=== PATIENT | male | born 1990 | race Asian ===

== ENCOUNTER 2017-04-19 08:47 | Day surgery (SDC) | payer OTHER ==
[~2017-04-19] VITALS: Ht 170.2 cm; Wt 71.2 kg
[2017-04-19] VITALS (7 sets, daily range): BP systolic 110–133; BP diastolic 56–75
--- NOTE | 2017-04-19 09:20 | Anethesia Preoperative Eval ---
Anesthesia Pre-op PMH/ROS General Date of Evaluation: Apr 19, 2017 Time of Evaluation: 09:20 Anesthesiologist: joseluis ASA Score: ASA 2 Mallampati Score Class I : Soft palate, uvula, fauces, pillars visible Class II: Soft palate, uvula, fauces visible Class III: Soft palate, base of uvula visible Class IV: Only hard plate visible Mallampati Classification: Class II Surgeon: aelx Diagnosis: abdominal pain, gerd Surgical Procedure: egd Anesthesia History: none Social History: smoking - former smoker Family History: no anesthesia problems Allergies: Coded Allergies: No Known Allergies (Unverified , 04/19/17) Medications: see eMAR Past Medical History Pulmonary: Reports: other - tuberculosis Gastrointestinal/Genitourinary: Reports: GERD Anesthesia Pre-op Phys. Exam Physician Exam Last Vital Signs Date Time Temp Pulse Resp B/P (MAP) Pulse Ox O2 Delivery O2 Flow Rate FiO2 04/19/17 10:00 61 16 112/69 99 Nasal Cannula 3.0 04/19/17 09:52 97.6 Constitutional: NAD Neurologic: CN 2-12 intact Cardiovascular: RRR Respiratory: CTA Gastrointestinal: S/NT/ND Airway Exam Mallampati Score: Class II MO: full Neck: supple TMD: 2fb ROM: full Teeth: intact Anesthesia Pre-op A/P Risk Assessment & Plan Assessment: asa2 Plan: mac Status Change Before Surgery: No Pre-Antibiotics Drug: ALEXANDER Mina Apr 19, 2017 09:20
[2017-04-19] MEDS ORDERED: Lidocaine 1% MPF 10mg/ml 5ml ONE (09:34)
[2017-04-19] MEDS ORDERED: Propofol 200mg/20ml IV ONE (09:34)
[2017-04-19] MEDS ORDERED: LR 1000ml ONE (09:34)
--- NOTE | 2017-04-19 09:34 | Short Stay Surgery H&P ---
History of Present Illness History of Present Illness Chief Complaint Abdominal/epigastric pains and heartburn/GERD. SHUKRI Mcclendon is a 26 year old male who was admitted on for Abdominal Pain/ Gerds Patient History Allergies: Coded Allergies: No Known Allergies (Unverified , 04/19/17) PAST MEDICAL HISTORY: (1) Tuberculosis Past Surgeries: Social History: Review of Systems Respiratory: Reports: no symptoms Skeletal: Reports: no symptoms Gastrointestinal: Reports: gastro esophageal reflux disease Genitourinary: Reports: no symptoms Neurologic: Reports: no symptoms Endocrine: Reports: no symptoms Hematologic: Reports: no symptoms Physical Exam Skin: normal HENT: normal Heart: normal Abdomen: abnormal Extremities: normal Genitourinary: normal Plan Plan of Care Upper GI endoscopy and biopsy. Preop Interventions None. Summary of Findings See the rreports. Final Diagnosis: Attestation Are the patient's medical conditions optimized for surgery? Attestation Response: yes DAVID PINTO Apr 19, 2017 09:34
--- NOTE | 2017-04-19 09:35 | Pre-Procedure Note/Attestation ---
Pre-Procedure Note/Attestation Complete Prior to Procedure Planned Procedure: left Procedure Narrative: Endoscopic exam of the upper GI tract. Indications for Procedure Pre-Operative Diagnosis: R/O Peptic Ulcer/ Gastritis. Attestation I attest that I discussed the nature of the procedure; its benefits; risks and complications; and alternatives (and the risks and benefits of such alternatives ), prior to the procedure, with the patient (or the patient's legal sales account representative). I attest that, if there was a reasonable possibility of needing a blood transfusion, the patient (or the patient's legal sales account representative) was given the [facility] standardized written summary, pursuant to the [place] Blood Safety Act ([place] Health and Safety Code # 1645, as amended). I attest that I re-evaluated the patient just prior to the surgery and that there has been no change in the patient's H&P, except as documented below: MILLIE,SAID Apr 19, 2017 09:35
[2017-04-19] MEDS ORDERED: LR 1000ml 1,000 ML IVLG SCH (09:43)
[2017-04-19] MEDS ORDERED: DiphenhydrAMINE 50mg/ml Inj IVP PRN (09:45)
[2017-04-19] MEDS ORDERED: OMEPRAZOLE MAGN20 MG PO (09:45)
[2017-04-19] MEDS ORDERED: Atropine Inj 1mg/10ml Syr IV PRN (09:45)
[2017-04-19] MEDS ORDERED: Midazolam 2mg/2ml Inj IVP PRN (09:45)
[2017-04-19] MEDS ORDERED: fentaNYL 100 mcg/2 mL IV PRN (09:45)
--- NOTE | 2017-04-19 09:45 | Endoscopy Procedure Note ---
Endoscopy Procedure Note Indication for Procedure: Abdominal pains/GERDs. Procedures Performed: EGD - Normal Upper GI endoscopy with biopsy done from gastric body per random. Specimen: yes Pt Tolerated Procedure Well: Yes Estimated Blood Loss: none Anesthesiologist: Dr. Hodgson. Anesthesia: moderate sedation Medication Given: see anesthesia record Implant(s) used?: No 50 yrs or older w/o bx or poly: Not Applicable 10yrs. F/U not recommended: Not Applicable If not recommended, why?: Med reason:<3 yrs.: System Reason:<3 yrs.: DAVID PINTO Apr 19, 2017 09:45
--- NOTE | 2017-04-19 09:46 | Discharge Instructions ---
Discharge Instructions Discharge Instructions Follow up with: See the doxtor in office after two weeks. For Congestive Heart Failure Reminder Report to your physician any weight gain of 5 pounds or more in one week. DAVID PINTO Apr 19, 2017 09:46
--- NOTE | 2017-04-19 10:11 | Immediate Post-Op Evaluation ---
Immediate Post-Op Evalulation Immediate Post-Op Evalulation Procedure: egd Date of Evaluation: Apr 19, 2017 Time of Evaluation: 10:04 IV Fluids: 150ml lr Blood Products: none Estimated Blood Loss: negligible Blood Pressure Systolic: 112 Blood Pressure Diastolic: 69 Pulse Rate: 61 Respiratory Rate: 18 O2 Sat by Pulse Oximetry: 100 Temperature (Fahrenheit): 97.6 Pain Score (1-10): 0 Nausea: No Vomiting: No Complications none Patient Status: awake, reacts, patent Hydration Status: adequate Drug: ALEXANDER Mina Apr 19, 2017 10:10
--- NOTE | 2017-04-19 10:12 | 48 Hour Post Anesthesia Eval ---
Post Anesthesia Evaluation Procedure: egd Date of Evaluation: Apr 19, 2017 Time of Evaluation: 10:11 Blood Pressure Systolic: 114 0: 66 Pulse Rate: 65 Respiratory Rate: 18 Temperature (Fahrenheit): 97.6 O2 Sat by Pulse Oximetry: 99 Airway: patent Nausea: No Vomiting: No Pain Intensity: 0 Hydration Status: adequate Cardiopulmonary Status: stable Mental Status/LOC: patient returned to baseline Post-Anesthesia Complications: none Follow-up care needed: N/A ALEXANDER JACQUES Apr 19, 2017 10:12
--- NOTE | 2017-04-19 20:32 | Procedure Note ---
DATE OF PROCEDURE: 04/19/2017 SURGEON: Joon Sandoval M.D. PROCEDURE: Esophagogastroduodenoscopy with biopsy. PREOPERATIVE DIAGNOSES: 1. Abdominal pain. 2. History of chronic gastroesophageal reflux. POSTOPERATIVE DIAGNOSIS: Completely normal upper gastrointestinal endoscopy. Biopsy was taken per random from gastric body. MEDICATION USED: Per Dr. Hodgson, anesthesiologist. INSTRUMENT: GIF Olympus upper gastrointestinal video endoscope. DESCRIPTION OF PROCEDURE: The patient after arriving in the endoscopy unit, was told about risks and benefits of the procedure, which he accepted and signed the informed consent. He was then put on the left lateral decubitus position. After adequate IV sedation, the scope was gently passed through the cricopharyngeal area, was lodged into the upper esophagus and gradually advanced towards the gastroesophageal junction. The entire length of the esophagus including upper and mid lower part of the esophagus was examined, which were quite completely normal. There was no evidence of inflammatory process, ulceration, varices, stricture, etc. GE junction also looked normal. No hiatal hernia or Valenzuela's. At this time, the scope was advanced into the stomach. Gastric cavity was distended. Gastric fold came into view and the areas of the fundus and the body and the antrum were examined in gradual fashion. All these areas remained to be completely normal without any evidence of pathology such as inflammatory process, gastritis, polyps, tumors, angiodysplasia, etc. A retroflexion maneuver, which was also applied for further evaluation of the fundus did not reveal any pathology. At this time, the scope was gradually passed through the gastric body, antrum, pylorus, and first and second portion of duodenum were also examined, which completely looked normal. At this time, the scope was pulled out and the procedure was terminated. The patient tolerated the procedure well and left the endoscopy room in a good condition. Joon Sandoval M.D. DR: WILFREDO JOB#: [id number] CC:
== END 2017-04-19 12:40 | disposition home or self-care (01) ==
LOC: SUR 08:47
DX: R10.9 Unspecified abdominal pain (principal); K21.9 Gastro-esophageal reflux disease without esophagitis; K29.50 Unspecified chronic gastritis without bleeding; Z87.891 Personal history of nicotine dependence
CPT/HCPCS: 43239; J2704; J7120; 94003; 94150